=== PATIENT | male | born 1955 | race Hispanic/Latino ===

== ENCOUNTER 2022-01-13 15:09 | Emergency (ER) | payer OTHER ==
[~2022-01-13] VITALS: Ht 167.6 cm; Wt 81.6 kg
[2022-01-13] MEDS ORDERED: LIDOCAINE HCL 2% VISCOUS 15 ML UDCUP ONE (15:29)
[2022-01-13] MEDS ORDERED: MAG/ALUM/SIMETH 30 ML UDCUP ONE (15:29)
[2022-01-13 15:36] VITALS: BP 140/86
[2022-01-13] MEDS ORDERED: MAG/ALUM/SIMETH 30 ML UDCUP PO ONE (16:00)
[2022-01-13] MEDS ORDERED: LIDOCAINE HCL 2% VISCOUS 15 ML UDCUP PO ONE (16:00)
== END 2022-01-13 15:42 | disposition home or self-care (01) ==
LOC: EDH 15:09
DX: K13.70 Unspecified lesions of oral mucosa (principal); I48.91 Unspecified atrial fibrillation; I10 Essential (primary) hypertension; E78.00 Pure hypercholesterolemia, unspecified

== ENCOUNTER 2023-10-17 07:00 | Observation (INO) | payer OTHER ==
[~2023-10-17] VITALS: Ht 167.6 cm; Wt 90.7 kg
[2023-10-17 07:15] LABS: BASOPHILS # (AUTO) 0.05 K/uL (0.00-0.20); BASOPHILS % (AUTO) 0.8 % (0.0-5.0); EOSINOPHILS # (AUTO) 0.32 K/uL (0.00-0.70); HEMATOCRIT 41.2 % (42-54); IMMATURE GRANULOCYTE ABSOLUTE 0.02 K/uL (0-1); LYMPHOCYTES # (AUTO) 2.5 K/uL (1.0-4.8); LYMPHOCYTES % (AUTO) 39.6 % (21.0-51.0); MEAN CORPUSCULAR HEMOGLOBIN 30.9 pg (27.0-33.0); MEAN CORPUSCULAR HGB CONC 34.5 g/dL (32.0-36.0); MEAN CORPUSCULAR VOLUME 89.8 fL (79-99); MONOCYTES # (AUTO) 0.7 K/uL (0.1-1.0); MONOCYTES % (AUTO) 11.3 % (3.0-13.0); NEUTROPHILS # (AUTO) 2.8 K/uL (1.8-7.7); PLATELET COUNT (AUTO) 260 K/uL (130-400); RED BLOOD CELL COUNT(AUTO) 4.59 MIL/uL (4.50-6.20); RED CELL DISTRIBUTION WIDTH 12.1 % (11.0-15.5); WHITE BLOOD COUNT (AUTO) 6.4 K/uL (4.8-10.8)
[2023-10-17 07:30] LABS: CREATININE 0.9 mg/dL (0.5-1.3); POTASSIUM 4.1 mmol/L (3.5-5.1)
[2023-10-17] MEDS ORDERED: NITROGLYCERIN 0.4 MG SL TAB SL PRN ×2 (07:30→10:00)
[2023-10-17 07:40] LABS: ALBUMIN 3.4 g/dL (3.5-5.0); BILIRUBIN,TOTAL 0.4 mg/dL (0.2-1.0); TOTAL PROTEIN, SERUM 7.2 g/dL (6.0-8.3)
[2023-10-17 08:39] LABS: APPEARANCE,URINE CLEAR (CLEAR); BILIRUBIN,URINE NEGATIVE (NEGATIVE); COLOR,URINE LIGHT-YELLOW (YELLOW); GLUCOSE, URINE (UA) NEGATIVE (NEGATIVE); KETONES,URINE NEGATIVE (NEGATIVE); LEUKOCYTE ESTERASE ,URINE NEGATIVE Leu/uL (NEGATIVE); NITRATE,URINE NEGATIVE (NEGATIVE); OCCULT BLOOD,URINE NEGATIVE (NEGATIVE); PROTEIN,URINE NEGATIVE (NEGATIVE); UROBILINOGEN,URINE 0.2 mg/dL (0.2-1.0)
[2023-10-17 08:46] LABS: ADD UA MICROSCOPIC NO
[2023-10-17] MEDS: ASPIRIN 325MG TAB PO ONE (09:37)
[2023-10-17] MEDS: ENOXAPARIN SODIUM 100 MG/1 ML SQ ONE (09:38)
[2023-10-17] MEDS ORDERED: ONDANSETRON 4MG INJ IV PRN (10:00)
[2023-10-17] MEDS ORDERED: DiphenhydrAMINE HCL 50 MG/ML VIAL IV PRN (10:00)
[2023-10-17] MEDS ORDERED: POTASSIUM CHLORIDE 10% ELIXIR 20 MEQ/15 ML UDCUP PO PRN (10:00)
[2023-10-17] MEDS ORDERED: POLYETHYLENE GLYCOL 3350 17 GM POWD.PACK PO PRN (10:00)
[2023-10-17] MEDS ORDERED: ZOLPIDEM TARTRATE 5 MG TAB PO PRN (10:00)
[2023-10-17] MEDS ORDERED: MAGNESIUM 2GM PREMIX 50ML 50 ML IV PRN (10:00)
[2023-10-17] MEDS ORDERED: LACTULOSE 20 GM/30 ML UDCUP PO PRN (10:00)
[2023-10-17] MEDS ORDERED: GUAIFENESIN SUGAR-FREE 100 MG/5 ML UDCUP PO PRN (10:00)
[2023-10-17] MEDS ORDERED: GUAIFENESIN-DM 200/20 MG 10 ML PO PRN (10:00)
[2023-10-17] MEDS ORDERED: MAG/ALUM/SIMETH 30 ML UDCUP PO PRN (10:00)
[2023-10-17] MEDS ORDERED: ALBUTEROL 0.083% 2.5 MG/3 ML INH IH PRN (10:00)
[2023-10-17] MEDS ORDERED: DOCUSATE SODIUM 100 MG CAP PO PRN (10:00)
[2023-10-17] MEDS ORDERED: POTASSIUM CHLORIDE 20MEQ/100ML 100 ML IV PRN ×2 (10:00)
[2023-10-17] MEDS ORDERED: DIPHENHYDRAMINE HCL 25 MG CAPSULE PO PRN (10:00)
[2023-10-17] MEDS ORDERED: ACETAMINOPHEN 325 MG TAB PO PRN ×2 (10:00)
[2023-10-17] MEDS ORDERED: HYDRALAZINE 25MG TABLET PO PRN (10:00)
[2023-10-17] MEDS ORDERED: ALPRAZOLAM 0.5 MG TABLET PO PRN (10:00)
[2023-10-17] MEDS ORDERED: KCL 20 MEQ ERTAB PO PRN (10:00)
[2023-10-17] MEDS ORDERED: CARV25TA PO (10:31)
[2023-10-17] MEDS ORDERED: ERGO50CA PO (10:31)
[2023-10-17] MEDS ORDERED: LINA145C PO (10:31)
[2023-10-17] MEDS ORDERED: ATOR20TA65 PO (10:31)
[2023-10-17] MEDS ORDERED: TAMS-1 PO (10:31)
[2023-10-17] MEDS ORDERED: CLOP75TA32 PO (10:31)
[2023-10-17] MEDS ORDERED: MEMA5TAB16 PO (10:31)
[2023-10-17] MEDS ORDERED: PANT40TA54 PO (10:31)
[2023-10-17] MEDS ORDERED: OXYC30TA2 PO (10:31)
[2023-10-17] MEDS ORDERED: PRED20TA3 PO (10:31)
[2023-10-17] MEDS ORDERED: LISI30TA4 PO (10:31)
[2023-10-17] MEDS ORDERED: NAPR-1023 PO (10:31)
[2023-10-17] MEDS ORDERED: CLON0.5T4 PO (10:31)
[2023-10-17] MEDS: CLOPIDOGREL 75MG TAB PO ONE (10:42)
[2023-10-17] MEDS: 0.9%NACL 1000ML 1,000 ML IV SCH (10:47)
[2023-10-17 11:10] VITALS: BP 103/57; PULSE 64; RESP 16; O2SAT 97
[2023-10-17] MEDS: INSULIN HUMULIN R 100 UNIT/ML 3ML SQ SCH (11:30)
[2023-10-17] MEDS ORDERED: ENOXAPARIN SODIUM 40 MG/0.4 ML SYRINGE SQ SCH (17:00)
[2023-10-17] MEDS ORDERED: FAMOTIDINE 20MG TAB PO SCH (21:00)
[2023-10-17] MEDS ORDERED: ATORVASTATIN 40 MG TABLET PO SCH (21:00)
[2023-10-18] MEDS ORDERED: CLOPIDOGREL 75MG TAB PO SCH (09:00)
[2023-10-18] MEDS ORDERED: ASPIRIN 81MG CHEW TAB PO SCH (09:00)
== END 2023-10-17 15:10 | disposition left against medical advice (07) ==
LOC: EDH 07:00 → EDHIP 09:45 → 3BH 15:02 → EDHIP 15:03
PROVIDERS: ADMIT Internal Medicine Critical Care Medicine; ATTEND Internal Medicine Critical Care Medicine
DX: R07.9 Chest pain, unspecified (principal); I11.9 Hypertensive heart disease without heart failure; E87.1 Hypo-osmolality and hyponatremia; F10.10 Alcohol abuse, uncomplicated; E78.5 Hyperlipidemia, unspecified; E66.9 Obesity, unspecified; I25.2 Old myocardial infarction; I20.9 Angina pectoris, unspecified; I48.91 Unspecified atrial fibrillation; G61.0 Guillain-Barre syndrome; Z87.891 Personal history of nicotine dependence; Z95.5 Presence of coronary angioplasty implant and graft; Z68.32 Body mass index [BMI] 32.0-32.9, adult
CPT/HCPCS: 96372; 96360; 96361; 99285; 84484 ×3; 80053; 85025; 82948; 81003; 36415; 71045; 93005; G0378 ×5; J1650

== ENCOUNTER → 2024-02-19 | Outpatient (CLI) | payer OTHER ==
[~2024-02-19] MED LIST: ATOR20TA65 PO; CARV25TA PO; CLON0.5T4 PO; CLOP75TA32 PO; ERGO50CA PO; LINA145C PO; LISI30TA4 PO; MEMA5TAB16 PO; NAPR-1023 PO; OXYC30TA2 PO; PANT40TA54 PO; PRED20TA3 PO; TAMS-1 PO
[2024-02-19] MEDS: REGADENOSON 0.4 MG/5 ML PF SYG IVP ONE (13:09)
== END | disposition home or self-care (01) ==
LOC: SHCH 08:23
PROVIDERS: ATTEND Internal Medicine Cardiovascular Disease
DX: R00.0 Tachycardia, unspecified (principal); I10 Essential (primary) hypertension; R06.02 Shortness of breath; R06.00 Dyspnea, unspecified; R42 Dizziness and giddiness
CPT/HCPCS: 78452; 93017; J2785; A9500 ×2

== ENCOUNTER → 2024-03-29 | Outpatient (CLI) | payer OTHER | END | disposition home or self-care (01) | LOC: SHCH 09:08 | PROVIDERS: ATTEND Internal Medicine Cardiovascular Disease | DX: I10 Essential (primary) hypertension (principal) | CPT/HCPCS: 93306 ==